=== PATIENT | male | born 1980 | race Caucasian/White ===

== ENCOUNTER 2019-08-14 02:00 | Emergency (ER) | payer SELFPAY ==
[~2019-08-14] VITALS: Ht 182.9 cm; Wt 117.9 kg
== END 2019-08-14 04:15 | disposition home or self-care (01) ==
LOC: ED 02:00
DX: R45.851 Suicidal ideations (principal)
CPT/HCPCS: 80053; 80176; 81001; 84443; 85025; 99284; G0480